=== PATIENT | male | born 1970 | race Caucasian/White ===

== ENCOUNTER 2024-12-24 11:30 | Emergency (ER) | payer BC, SELFPAY ==
[2024-12-24 11:50] VITALS: BP 160/110
--- NOTE | 2024-12-24 14:17 | ED.GENMED ---
History of Present Illness
<Eva Tran PA-C - Last Filed: 12/24/24 18:45>
General
Chief Complaint: Skin Problem
Source: patient
Exam Limitations: none
Time Seen by Provider: 12/24/24 14:06
History of Present Illness
History of Present Illness:
54yo right hand dominant male presenting with his for evaluation of left index finger pain. Symptoms began a few weeks ago but has been worsening x 1 week. It started with a 'crack' in his distal digit. 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 He has been having continued pain and now he is having pain throughout his digit with swelling. The pain is worse in the distal finger tip and underneath the nail. His
applied Neosporin under the nail a few days ago and pain has been worsening since then. He denies any drainage, fevers, chills.
Past History
<Eva Tran PA-C - Last Filed: 12/24/24 18:45>
Past History
ED Past Medical History: Other (Back pain)
ED Past Surgical History: Orthopedic
Social History
Tobacco: Smoker
Alcohol: Occasional
Personal:
Living: with family
Family History
Family History: Other (Mother with a stroke in her 70s)
Phy Exam
<Eva Tran PA-C - Last Filed: 12/24/24 18:45>
General Physical Exam
General Presentation: well appearing and no apparent distress
General age: appears stated age
General Skin: warm and dry
General Habitus: normal
General Mental: alert
ENT Exam
ENT Exam: normocephalic
Pulmonary Exam
Pulmonary Exam: no respiratory distress
Neurological Exam
Neurological Exam: alert
Musculoskeletal Exam
Musculoskeletal Exam: other (L index finger: Diffuse swelling to digit with erythema. Decreased flexion 2/2 swelling/pain. There is discoloration under the nail without any expressible purulence. +Tenderness to the lateral fingertip as well as the
flexor aspect of the digit. Cap refill and sensation intact. )
Skin Exam
Skin Exam: warm/dry and other (Both hands are calloused )
Psychiatric Exam
Psychiatric Exam: normal mood/affect
Course
<Eva Tran PA-C - Last Filed: 12/24/24 18:45>
Orders/Labs/Results
Orders:
Orders
12/24/24 11:53
Finger(s)/Thumb 2 View Lt [CR Finger(s)/thumb Min 2 Vw Lt] Urgent
Comment:
Reason For Exam: pain, swelling
12/24/24 15:21
Aluminium Finger Splint Left ONCE
CefTRIAXone [Rocephin] 2,000 mg IV NOW STA
Ketorolac [Toradol] 15 mg IV NOW STA
12/24/24 15:33
Sterile Water [Sterile Water For Injection] 20 ml .ROUTE .STK-MED
Vital Signs
Initial and Last Documented VS:
Initial Vital Signs
Temp Pulse Resp BP Pulse Ox
98.5 F 90 18 160/110 95
12/24/24 11:50 12/24/24 11:50 12/24/24 11:50 12/24/24 11:50 12/24/24 11:50
Last Documented Vital Signs
Temp Pulse Resp BP Pulse Ox
98.6 F 70 17 161/89 99
12/24/24 16:00 12/24/24 16:00 12/24/24 16:00 12/24/24 16:00 12/24/24 16:00
<Napoleon Barnes MD - Last Filed: 12/24/24 23:08>
Orders/Labs/Results
Orders:
Orders
12/24/24 11:53
Finger(s)/Thumb 2 View Lt [CR Finger(s)/thumb Min 2 Vw Lt] Urgent
Comment:
Reason For Exam: pain, swelling
12/24/24 15:21
Aluminium Finger Splint Left ONCE
CefTRIAXone [Rocephin] 2,000 mg IV NOW STA
Ketorolac [Toradol] 15 mg IV NOW STA
12/24/24 15:33
Sterile Water [Sterile Water For Injection] 20 ml .ROUTE .STK-MED
Vital Signs
Initial and Last Documented VS:
Initial Vital Signs
Temp Pulse Resp BP Pulse Ox
98.5 F 90 18 160/110 95
12/24/24 11:50 12/24/24 11:50 12/24/24 11:50 12/24/24 11:50 12/24/24 11:50
Last Documented Vital Signs
Temp Pulse Resp BP Pulse Ox
98.6 F 70 17 161/89 99
12/24/24 16:00 12/24/24 16:00 12/24/24 16:00 12/24/24 16:00 12/24/24 16:00
<Eva Tran PA-C - Last Filed: 12/24/24 18:45>
MDM/Problems Addressed
Differential Diagnosis Includes:
54yoM here with L index finger pain and swelling worsening x 1 week. No f/c or systemic symptoms. He is afebrile and well appearing. There is diffuse swelling to the digit on exam with decreased flexion. Most of the tenderness is at the distal
fingertip although there is some tenderness along the flexor sheath. Clinical concern for developing felon vs. flexor tenosynovitis
X-rays negative for osseous abnormalities. Discussed case with arson investigator hand surgeon, Dr. Villatoro, who recommends dose of IV antibiotics and Toradol in the ED with follow-up in the office tomorrow. IV Rocephin given (PCN allergy) and he was started
on a course of cefdinir. Finger splint provided. Discussed with patient importance of outpatient f/u within 24 hours. Strict ED return precautions discussed. Patient expressed understanding and was discharged in stable condition. Patient also seen
by ED attending, Dr. Barnes.
<Eva Tran PA-C - Last Filed: 12/24/24 18:45>
*Critical Care Note
Total Time (30-74mins, 75-104mins- exclusive of procedures): Not Applicable
ED Attending Note
<Eav Tran PA-C - Last Filed: 12/24/24 18:45>
-
Portions of this chart may have been created with voice recognition software.� Occasional wrong word or��sound alike� substitutions may have occurred due to the inherent limitations of voice recognition software.
<Napoleon Barnes MD - Last Filed: 12/24/24 23:08>
ED Attending Note
Patient seen and examined by attending physician: Yes
ED Attending Note:
Pt presents to ED secondary to worsening left 2nd digit over the past 2 weeks. Denies fever/chills. Denies nausea/vomiting. Denies direct trauma. Denies open wound. Pt reports pain with range of motion or to touch. In addition, pt reports mild
finger swelling. Denies redness/warmth. Denies previous history of similar symptoms.
General:: well nourished male, in mild painful distress. afebrile
Heent: nc/at. eomi
Neuro: aao x 3. no focal neurological deficit.
Ext: left 2nd phalanx: mild diffuse swelling with tender to palpation over distal volar pad with limited range of motion, due to pain. No open wound/drainage. no erythema/ecchymosis noted. no warmth noted.
History and exam concerning for early felon vs tenosynovitis. Discussed with on-call orthopaedic surgery, . Recommends administering one dose of iv abx and starting him on oral abx along with office evaluation tomorrow. Pt otherwise is
afebrile, hemodynamically stable, and neurovascularly intact at time of discharge.
Discharge Plan
Departure
Patient Disposition: Home (Routine Discharge)
Date of Disposition: 12/24/24
Time of Disposition: 15:43
Patient with high blood pressure during this ER visit?: Yes
Discharge Problem:
Infection of index finger
Instructions: Common finger infections - ED discharge instructions
Prescriptions:
New
cefdinir 300 mg capsule
300 mg PO BID Qty: 14 0RF
No Action
azithromycin 250 MG tablet
250 mg PO DAILY Qty: 6 0RF
albuterol sulfate [Proventil HFA] 90 MCG/PUFF HFA aerosol inhaler
2 puff inhalation Q4HPRN Qty: 1 0RF
hydrocodone-homatropine [Hycodan (with homatropine)] 5 ML syrup
10 ml PO Q4HPRN PRN (Reason: cough) Qty: 60 0RF
methylprednisolone [Medrol (Azar)] 4 MG tablets,dose pack
4 tab PO . DIRECT Qty: 1 0RF
cetirizine 10 MG tablet
10 mg PO DAILY Qty: 30 0RF
promethazine-codeine 118 ML syrup
5 ml PO Q4 PRN (Reason: Cough, pain) Qty: 118 0RF
ibuprofen 800 MG tablet
800 mg PO TID Qty: 30 0RF
doxycycline hyclate 100 MG capsule
100 mg PO Q12 Qty: 14 0RF
prednisone 10 mg Tablet
See Rx Instructions .ROUTE .COMPLEX Qty: 30 0RF
Rx Instructions:
Take By Mouth:
40 mg daily x3 days, 30 mg daily x3 days,
20 mg daily x3 days, 10 mg daily x3 days.
hydrocodone-acetaminophen 5-325 mg tablet
1 tab PO Q6H PRN (Reason: pain) Qty: 10 0RF
Referrals:
Rob Kruger MD [Family Provider] -
Dipak Villatoro MD [Active] -
Activity Restrictions/Additional Instructions:
Take antibiotics as prescribed. Take ibuprofen as needed for pain.
Please follow-up with hand surgery tomorrow. Return to the ER with any worsening symptoms, fevers, chills, or spreading redness.
Interventions
Interventions:
*Risk Screen - Suicide Last Done: 12/24/24 11:50
*General Assessment Last Done: 12/24/24 11:50
*Neglect/Abuse Screening Last Done: 12/24/24 11:50
ED- Fall Risk Assessment Last Done: 12/24/24 16:03
*ED COVID-19 Vaccine History Last Done: 12/24/24 16:03
ED-Skin Assessment Last Done: 12/24/24 16:03
Discharge Date and Time
Discharge Date/Time: 12/24/24 16:04
Print Language: MALTESE
[2024-12-24] MEDS: ROCEPHIN 2000 MG IV (15:39)
[2024-12-24] MEDS: TORADOL 15 MG IV (15:39)
[2024-12-24 16:00] VITALS: BP 161/89
== END 2024-12-24 16:04 | disposition home or self-care (01) ==
LOC: EMR 11:30
PROVIDERS: EMERGENCY PHYSICIAN Emergency Medicine; FAMILY PHYSICIAN Family Medicine
DX: L08.9 Local infection of the skin and subcutaneous tissue, unspecified (principal); M79.645 Pain in left finger(s); F17.200 Nicotine dependence, unspecified, uncomplicated
CPT/HCPCS: 29130; 96374; 96375; 99284; 73140